=== PATIENT | female | born 1970 | race Caucasian/White ===

== ENCOUNTER 2017-07-19 09:47 | Emergency (ER) | payer OTHER ==
[~2017-07-19] VITALS: Ht 165.1 cm; Wt 63.4 kg
[2017-07-19 09:55] VITALS: BP 152/97; PULSE 70; TEMP 36.8; O2SAT 98; Ht 165.1 cm; Wt 63.4 kg
[2017-07-19] MEDS ORDERED: MULT-506 PO (10:29)
[2017-07-19] MEDS ORDERED: ST J (10:29)
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
== END 2017-07-19 11:06 | disposition home or self-care (01) ==
LOC: C.EDB 09:49 → C.EDC 11:06
DX: S61.233A Puncture wound without foreign body of left middle finger without damage to nail, initial encounter (principal); W46.0XXA Contact with hypodermic needle, initial encounter; Y92.89 Other specified places as the place of occurrence of the external cause; Y99.0 Civilian activity done for income or pay; Z83.3 Family history of diabetes mellitus; Z83.79 Family history of other diseases of the digestive system; Z82.49 Family history of ischemic heart disease and other diseases of the circulatory system